=== PATIENT | male | born 1945 | race Caucasian/White ===

== ENCOUNTER 2016-11-17 12:11 | Emergency (ER) | payer OTHER, MEDICARE ==
[~2016-11-17] VITALS: Ht 175.3 cm; Wt 76.7 kg
[2016-11-17] MEDS ORDERED: LISI-538 PO (12:23)
[2016-11-17] MEDS ORDERED: SIMV5TAB4 PO (12:23)
[2016-11-17] MEDS ORDERED: ATEN50TA2 PO (12:23)
[2016-11-17] MEDS ORDERED: HYDR-4267 PO (12:23)
[2016-11-17] MEDS ORDERED: PRAD150C PO (12:23)
[2016-11-17] MEDS ORDERED: SKEL-29 PO (16:50)
[2016-11-17] MEDS ORDERED: NORC1TAB4 PO (16:53)
--- NOTE | 2016-11-17 17:13 | REP ---
CERVICAL SPINE, SEVEN VIEWS: HISTORY: Back pain. The cervical spine is visualized from C1 to C7 in the lateral radiographs. There is no acute fracture or subluxation. The C3-4, C4-5, and C6-7 intervertebral discs are decreased in height consistent with disc degeneration. Osteophytes are present on C3 through 7. There is narrowing of the C3 neural foramina secondary to uncinate process hypertrophy. Calcifications are present anterior to the C4-5 and C5-6 intervertebral discs. This represents calcification in the anterior longitudinal ligament. IMPRESSION: Degenerative change as described above. Signed by Semaj Muñoz MD 11/17/2016 05:15 P
--- NOTE | 2016-11-17 17:15 | REP ---
LUMBAR SPINE, FIVE VIEWS: HISTORY: Back pain. There is no acute fracture or subluxation. The lumbar intervertebral discs are in height. Vacuum phenomenon is present at the L5-S1 level. These findings are consistent with disc degeneration. Osteophytes are present throughout the lumbar spine. There is narrowing of the L3-4 through L5-S1 facet joints with associated sclerosis. IMPRESSION: Degenerative change as described above. Signed by Semaj Muñoz MD 11/17/2016 05:18 P
--- NOTE | 2016-11-17 17:24 | REP ---
THORACIC SPINE, THREE VIEWS: HISTORY: Back pain. There is no acute fracture or subluxation. The intervertebral discs are normal in height. Impression: There is no acute fracture or subluxation. Signed by Semaj Muñoz MD 11/18/2016 08:14 A
[2016-11-17 17:27] VITALS: BP 156/90
== END 2016-11-17 17:29 | disposition home or self-care (01) ==
LOC: M ED 13:35
DX: M54.2 Cervicalgia (principal); M51.36 Other intervertebral disc degeneration, lumbar region; I10 Essential (primary) hypertension; I48.91 Unspecified atrial fibrillation; G47.30 Sleep apnea, unspecified; E78.00 Pure hypercholesterolemia, unspecified; Z79.899 Other long term (current) drug therapy